=== PATIENT | female | born 1975 | race Native Hawaiian/Other Pacific Islander ===

== ENCOUNTER 2017-11-13 09:33 | Outpatient (CLI) | payer OTHER | END 2017-11-13 23:28 | disposition home or self-care (01) | LOC: MAMMO 09:33 | DX: N63.20 Unspecified lump in the left breast, unspecified quadrant (principal) ==

== ENCOUNTER 2019-12-05 16:07 | Outpatient (CLI) | payer OTHER | END 2019-12-05 22:20 | disposition home or self-care (01) | LOC: CT 16:07 | DX: R22.1 Localized swelling, mass and lump, neck (principal) | CPT/HCPCS: Q9963 ==

== ENCOUNTER 2019-12-06 11:57 | Outpatient (CLI) | payer OTHER | END 2019-12-06 22:26 | disposition home or self-care (01) | LOC: LABW 11:57 | DX: R22.1 Localized swelling, mass and lump, neck (principal) | CPT/HCPCS: 36415; 82310 ==

== ENCOUNTER 2020-01-06 12:03 | Outpatient (CLI) | payer OTHER | END 2020-01-06 23:19 | disposition home or self-care (01) | LOC: CT 12:03 → LABW 12:03 → CT 13:00 | PROVIDERS: ATTEND Internal Medicine | DX: C73 Malignant neoplasm of thyroid gland (principal) | CPT/HCPCS: 36415; 82565; 84436; 84439; 84443; 84479; 84481; 84482; 84520; 86376; Q9963 ==

== ENCOUNTER 2020-02-25 08:35 | Outpatient (CLI) | payer OTHER | END 2020-02-25 22:02 | disposition home or self-care (01) | LOC: LABW 08:35 | PROVIDERS: ATTEND Otolaryngology Otolaryngology/Facial Plastic Surgery | DX: C73 Malignant neoplasm of thyroid gland (principal) | CPT/HCPCS: 36415; 84436; 84443 ==

== ENCOUNTER 2020-05-20 08:32 | Outpatient (CLI) | payer OTHER ==
[2020-05-20 10:13] LABS: POTASSIUM 4.1 mmol/L (3.6-5.2)
== END 2020-05-20 22:37 | disposition home or self-care (01) ==
LOC: LABW 08:32
PROVIDERS: ATTEND Internal Medicine Endocrinology, Diabetes & Metabolism
DX: E89.0 Postprocedural hypothyroidism (principal)
CPT/HCPCS: 36415; 80048; 82306; 83970; 84439; 84443; 86800

== ENCOUNTER 2020-07-24 09:13 | Outpatient (CLI) | payer OTHER | END 2020-07-24 19:56 | disposition home or self-care (01) | LOC: MAMMO 09:13 | PROVIDERS: ATTEND Obstetrics & Gynecology | DX: Z12.31 Encounter for screening mammogram for malignant neoplasm of breast (principal) ==

== ENCOUNTER 2020-11-17 09:29 | Outpatient (CLI) | payer OTHER ==
[2020-11-17 10:02] LABS: PLATELET COUNT 242 K/uL (152-353)
[2020-11-17 12:21] LABS: POTASSIUM 3.9 mmol/L (3.6-5.2); SODIUM 139 mmol/L (136-145)
== END 2020-11-17 19:09 | disposition home or self-care (01) ==
LOC: LABW 09:29
PROVIDERS: ATTEND Family Medicine
DX: R68.82 Decreased libido (principal); R53.82 Chronic fatigue, unspecified; Z13.220 Encounter for screening for lipoid disorders; E55.9 Vitamin D deficiency, unspecified; E53.8 Deficiency of other specified B group vitamins; E89.0 Postprocedural hypothyroidism
CPT/HCPCS: 36415; 80053; 82306; 82607; 82670; 83001; 84402; 84403; 84436; 84439; 84443; 84481; 85027; 86376; 86800

== ENCOUNTER 2021-02-25 10:40 | Outpatient (CLI) | payer OTHER | END 2021-02-25 19:14 | disposition home or self-care (01) | LOC: LABW 10:40 | PROVIDERS: ATTEND Internal Medicine | DX: E89.0 Postprocedural hypothyroidism (principal) | CPT/HCPCS: 36415; 82306; 84432; 84436; 84439; 84443; 84481; 84482; 86376; 86800 ==

== ENCOUNTER 2021-07-20 10:58 | Outpatient (CLI) | payer OTHER | END 2021-07-20 19:30 | disposition home or self-care (01) | LOC: LABW 10:58 | PROVIDERS: ATTEND Internal Medicine Endocrinology, Diabetes & Metabolism | DX: E89.0 Postprocedural hypothyroidism (principal) | CPT/HCPCS: 36415; 84439; 84443; 84481; 86800 ==

== ENCOUNTER 2021-09-29 11:18 | Outpatient (CLI) | payer OTHER | END 2021-09-29 19:24 | disposition home or self-care (01) | LOC: MAMMO 11:18 | PROVIDERS: ATTEND Obstetrics & Gynecology | DX: Z12.31 Encounter for screening mammogram for malignant neoplasm of breast (principal) ==

== ENCOUNTER 2021-10-15 10:10 | Outpatient (CLI) | payer OTHER | END 2021-10-15 21:02 | disposition home or self-care (01) | LOC: US 10:10 | PROVIDERS: ATTEND Internal Medicine Endocrinology, Diabetes & Metabolism | DX: E89.0 Postprocedural hypothyroidism (principal) | CPT/HCPCS: 36415; 84439; 84443; 84481; 86800 ==

== ENCOUNTER 2022-04-20 15:06 | Outpatient (CLI) | payer OTHER ==
[2022-04-20 15:33] LABS: PLATELET COUNT 244 K/uL (152-353)
[2022-04-20 16:30] LABS: POTASSIUM 4.2 mmol/L (3.6-5.2)
== END 2022-04-20 19:17 | disposition home or self-care (01) ==
LOC: LABW 15:06
PROVIDERS: ATTEND Internal Medicine Endocrinology, Diabetes & Metabolism
DX: E89.0 Postprocedural hypothyroidism (principal); E55.9 Vitamin D deficiency, unspecified
CPT/HCPCS: 36415; 80053; 80061; 82306; 84439; 84443; 85027; 86800

== ENCOUNTER 2022-06-20 07:59 | Outpatient (CLI) | payer OTHER | END 2022-06-20 19:33 | disposition home or self-care (01) | LOC: CT 07:59 | PROVIDERS: ATTEND Internal Medicine | DX: R59.0 Localized enlarged lymph nodes (principal); R93.89 Abnormal findings on diagnostic imaging of other specified body structures | CPT/HCPCS: Q9963 ==

== ENCOUNTER 2022-10-26 08:57 | Outpatient (CLI) | payer OTHER ==
[2022-10-26 09:36] LABS: PLATELET COUNT 239 K/uL (152-353)
[2022-10-26 09:52] LABS: POTASSIUM 4.1 mmol/L (3.6-5.2)
== END 2022-10-26 18:59 | disposition home or self-care (01) ==
LOC: LABW 08:57
PROVIDERS: ATTEND Internal Medicine Endocrinology, Diabetes & Metabolism
DX: E89.0 Postprocedural hypothyroidism (principal); C73 Malignant neoplasm of thyroid gland
CPT/HCPCS: 36415; 80053; 84439; 84443; 85027; 86800